=== PATIENT | male | born 1985 | race Two or more races ===

== ENCOUNTER 2018-12-15 21:52 | Emergency (ER) | payer SELFPAY ==
[2018-12-15] MEDS ORDERED: Acetaminophen/oxyCODONE 325-5 MG Tab PO ONE (23:31)
[2018-12-15] MEDS ORDERED: Ondansetron 4 MG Tab.DIS PO ONE (23:31)
[2018-12-15] MEDS ORDERED: Ibuprofen 600 MG Tab PO ONE (23:32)
--- NOTE | 2018-12-15 23:32 | EDM.PDOC ---
ED HPI GENERAL MEDICAL PROBLEM - General Chief Complaint: Upper Extremity Injury/Pain Stated Complaint: SMASHED MIDDLE FINGER ON RIGHT HAND Time Seen by Provider: 12/15/18 23:30 Source of Information: Reports: Patient History Limitations: Reports: No Limitations - History of Present Illness INITIAL COMMENTS - FREE TEXT/NARRATIVE: 33-year-old male presents the ED with a crush type injury to the distal aspect of his right third finger. He states he slammed it in a car door around noon hour today up in [place]. He had on Lasix the door to release his finger. Socially the fingers become much more painful and swollen and he appreciates blood underneath the fingernail. Of note he is right-hand dominant. There are no open wounds to the finger. He denies any other injuries. Onset: Today Onset Date: 12/15/18 Onset Time: 12:00 Duration: Hour(s): Location: Reports: Upper Extremity, Right Quality: Reports: Ache (Crush type injury to the distal aspect of his right third finger), Pressure, Throbbing Severity: Moderate Improves with: Reports: None (8 out of 10) Worsens with: Reports: Other Context: Reports: Trauma (Slammed it in a car door and the door latched on his finger. He had open the door to release his finger). Denies: Activity (Touch.) , Exercise, Lifting, Sick Contact Associated Symptoms: Reports: No Other Symptoms Treatments IN [employer]: Reports: Acetaminophen (With no relief.) Right Finger-Middle Pain Score (Numeric/FACES): 8 - Related Data Allergies Allergy/AdvReac Type Severity Reaction Status Date / Time No Known Allergies Allergy Verified 12/15/18 22:20 Home Meds: Home Meds oxyCODONE HCl/Acetaminophen [Percocet 5-325 mg Tablet] 1 - 2 each PO Q4H PRN # 20 tablet 12/16/18 [Rx] Past Medical History - Past Health History Medical/Surgical History: Denies Medical/Surgical History Social & Family History - Tobacco Use Smoking Status *Q: Never Smoker - Recreational Drug Use Recreational Drug Use: No - Living Situation & Occupation Living situation: Reports: Single Occupation: Employed Review of Systems - Review of Systems Review Of Systems: See Below Constitutional: Reports: No Symptoms Eyes: Reports: No Symptoms Ears: Reports: No Symptoms Nose: Reports: No Symptoms Mouth/Throat: Reports: No Symptoms Respiratory: Reports: No Symptoms Cardiovascular: Reports: No Symptoms GI/Abdominal: Reports: No Symptoms Genitourinary: Reports: No Symptoms Musculoskeletal: Reports: No Symptoms Skin: Reports: No Symptoms Neurological: Reports: No Symptoms Psychiatric: Reports: No Symptoms ED EXAM, GENERAL - Physical Exam Exam: See Below Exam Limited By: No Limitations General Appearance: Alert, WD/WN, Mild Distress Extremities: Other (Examination of his right third finger reveals a significant subungual hematoma taking up the inferior 50% of the nail bed. The pulp space however is also extremely taut due to blood within the soft tissues and markedly swollen. He has full range of motion at the DIP joint. Pain does radiate along the finger down into his hand.) Neurological: Alert, Oriented, CN II-XII Intact, Normal Cognition, Normal Gait, No Motor/Sensory Deficits, Sensory/Motor Deficit Psychiatric: Normal Affect Skin Exam: Warm, Dry, Intact, Normal Color, No Rash Course - Vital Signs Last Recorded V/S: Last Vital Signs Temp 36.6 C 12/15/18 22:17 Pulse 81 12/15/18 22:17 Resp 16 12/15/18 22:17 BP 140/74 12/15/18 22:17 Pulse Ox 97 12/15/18 22:17 - Orders/Labs/Meds Orders: Active Orders 24 hr Category Date Time Status Fingers Third Digit Rt F7 [CR] Stat Exams 12/15/18 23:30 Taken Meds: Medications Discontinued Medications Generic Name Dose Route Start Last Admin Trade Name Freq PRN Reason Stop Dose Admin Ibuprofen 600 mg 12/15/18 23:32 12/15/18 23:50 Motrin PO 12/15/18 23:33 600 mg ONETIME ONE Administration Ondansetron HCl 4 mg 12/15/18 23:31 12/15/18 23:49 Zofran Odt PO 12/15/18 23:32 4 mg ONETIME ONE Administration Oxycodone/Acetaminophen 2 tab 12/15/18 23:31 12/15/18 23:49 Percocet 325-5 Mg PO 12/15/18 23:32 2 tab ONETIME ONE Administration - Radiology Interpretation Free Text/Narrative:: 33-year-old male presents to the ED with an acute injury to his distal right third finger when it was slammed in a car door by himself at about noon hour today. He was working up in [place] today and couldn't seek medical care until he got back to [place]. He states initially the finger hurt but subsequently it has become much more painful and swollen. Emanation he has a significant subungual hematoma taking up the lower 50% of the nail fold. No open wounds. The pulp space is very full of blood and is ecchymotic suggesting fracture. Plan x-ray of the finger to be done. - Re-Assessments/Exams Free Text/Narrative Re-Assessment/Exam: 12/16/18 00:02: X-ray of the right third finger reveals a fracture of the tuft of the distal phalanx. With the skin intact this wound will heal on its own over the next 6 weeks. I will therefore not be able to drain his subungual hematoma as this may will would create an open fracture. Patient will elevate his hand is much as possible. Percocet tabs 5/3/25 milligram 2 were given in the ED in a prescription for 20 more tablets to be used over the next 3-5 days. Advised usually 1 tablet with 600 mg of Motrin will suffice usually to control the pain. Swelling will start to dissipate after 72 hours. Present is too tender to allow ice pack. I did write a note for him so that he may return to work if there are alternative work duties so that he would not have to use his right hand particularly for any gripping or grasping for the next 4-6 weeks until the fracture can heal. He was given a splint to protect area that he can put on after the swelling goes down. Follow-up as needed. Departure - Departure Time of Disposition: 00:04 Disposition: Home, Self-Care 01 Condition: Fair Clinical Impression: Fracture, finger, distal phalanx Qualifiers: Encounter type: initial encounter Finger: middle finger Fracture type: closed Fracture alignment: nondisplaced Laterality: right Qualified Code(s): S62.662A - Nondisplaced fracture of distal phalanx of right middle finger, initial encounter for closed fracture Subungual hematoma of finger of right hand Qualifiers: Encounter type: initial encounter Qualified Code(s): S60.10XA - Contusion of unspecified finger with damage to nail, initial encounter - Discharge Information *PRESCRIPTION DRUG MONITORING PROGRAM REVIEWED*: No *COPY OF PRESCRIPTION DRUG MONITORING REPORT IN PATIENT PRISCILLA: No Prescriptions: oxyCODONE HCl/Acetaminophen [Percocet 5-325 mg Tablet] 1 - 2 each PO Q4H PRN # 20 tablet PRN Reason: pain relief. Instructions: Subungual Hematoma, [id number], Finger Fracture, Adult Referrals: PCP,None [Primary Care Provider] - Forms: ED Department Discharge, ED Return to Work/School Form Additional Instructions: Evaluation the emergency room today in regards to crush injury to the distal aspect of your right third finger that occurred earlier this afternoon. Examination reveals the finger to be full of blood and is very swollen. There is a large collection of blood under the fingernail as well which we call a subungual hematoma. This puts direct pressure on the underlying bone and causes pain. X-ray of the finger was carried out in the ED and confirms that fracture of the end of your finger or tip of the finger. Therefore the subungual hematoma cannot be opened and drained as this may introduce infection into the underlying bone. Minute is pain management and protecting the area until it can heal. Swelling will take about 10 days to subside completely. Pain had been markedly improved in 3-4 days time. In the meantime may take Percocet tablets 5/ 325 mg one or 2 every 6 hours with Motrin 600 mg every 6 hours for pain relief. Elevate the hand is much as possible. Splint may be applied over the finger to protect it after 3 days when the swelling goes down. May return to work if alternative work duties are available. Will not be able to use right hand for grabbing anything for the next month or more. The fracture will be completely healed in about 6 weeks' time. - My Orders Last 24 Hours: My Active Orders 12/15/18 23:30 Fingers Third Digit Rt F7 [CR] Stat - Assessment/Plan Last 24 Hours: My Active Orders 12/15/18 23:30 Fingers Third Digit Rt F7 [CR] Stat
--- NOTE | 2018-12-16 08:30 | CR ---
Right third finger: Four views centered to the right third finger were obtained. Comparison: No previous finger or hand exam. Slightly comminuted tuft fracture noted within the distal third finger. Soft tissue swelling is noted. No proximal bony abnormality is seen. Impression: 1. Slightly comminuted tuft fracture within the distal right third finger. 2. Soft tissue swelling. Diagnostic code #3
== END 2018-12-16 00:20 | disposition home or self-care (01) ==
LOC: JD.ED 21:52
DX: S62.662A Nondisplaced fracture of distal phalanx of right middle finger, initial encounter for closed fracture (principal); S60.131A Contusion of right middle finger with damage to nail, initial encounter; W23.1XXA Caught, crushed, jammed, or pinched between stationary objects, initial encounter
CPT/HCPCS: 73140; 99283; A9270